=== PATIENT | female | born 1990 | race Caucasian/White ===

== ENCOUNTER 2018-03-07 16:04 | Emergency (ER) | payer SELFPAY ==
--- NOTE | 2018-03-07 16:27 | ED.PDOC ---
History of Present Illness - General Chief Complaint: GI Problem Stated Complaint: INDIGESTION Time Seen by Provider: 03/07/18 16:19 Source: patient Exam Limitations: no limitations - History of Present Illness Initial Comments: Oswald Noonan 27 y/o female stated that she had intermittent N/V the last 2 weeks and 2 days ago started having loose stools ,no dysuria or hematuria.No abdominal pains but with loss of her appetite and also stated exposed to several niece that had been sick.Denies chronic medical problem. Severity: moderate Improving Factors: nothing Worsening Factors: nothing Associated Symptoms: loss of appetite Allergies/Adverse Reactions: Allergies NO KNOWN ALLERGY Allergy (Verified 09/13/13 10:20) Home Medications: Ambulatory Orders Promethazine Tab [Phenergan Tablet] 25 mg PO .Q4H PRN #20 tab 03/07/18 Sertraline HCl 50 mg PO BEDTIME 03/07/18 Review of Systems - Review of Systems Constitutional: States: no symptoms reported EENTM: States: no symptoms reported Respiratory: States: no symptoms reported Cardiology: States: no symptoms reported Gastrointestinal/Abdominal: States: see HPI, vomiting Genitourinary: States: no symptoms reported Musculoskeletal: States: no symptoms reported Skin: States: no symptoms reported Past Medical History (General) - Patient Medical History Hx Stroke: No Hx Congestive Heart Failure: No Hx Thyroid Disease: No Hx Diabetes: No Hx Other PMH: Yes - endometriosis Surgical History: cholecystectomy - Vaccination History Hx Influenza Vaccination: No Family Medical History - Family History Mother Family History: No Known Hx Family Hypertension: Yes - parents Physical Exam - Physical Exam General Appearance: Alert, Comfortable, No apparent distress Eye Exam: bilateral normal Ears, Nose, Throat: hearing grossly normal, normal ENT inspection Neck: non-tender, full range of motion, supple, normal inspection Respiratory: lungs clear, normal breath sounds, no respiratory distress Cardiovascular/Chest: normal peripheral pulses, regular rate, rhythm, no murmur Peripheral Pulses: radial,right: 2+, radial,left: 2+ Gastrointestinal/Abdominal: normal bowel sounds, non tender, soft, no organomegaly Back Exam: normal inspection, no CVA tenderness, no vertebral tenderness Extremity: no pedal edema, no calf tenderness Neurologic: alert, oriented x 3 Skin Exam: normal color, warm/dry Lymphatic: no adenopathy Progress - Progress Progress: 03/07/18 16:43 Vital Signs - 8 hr 03/07/18 16:14 Temperature 99.3 F Pulse Rate [ 98 H left brachial] Respiratory 18 Rate Blood Pressure 131/88 [right brachial ] O2 Sat by Pulse 97 Oximetry - Results/Orders Results/Orders: Laboratory Results - last 24 hr 03/07/18 03/07/18 03/07/18 16:28 17:16 17:16 WBC 8.6 RBC 4.36 Hgb 13.8 Hct 41.0 MCV 93.9 MCH 31.7 H MCHC 33.8 RDW 12.0 Plt Count 201 MPV 7.2 L Absolute Neuts (auto) 7.40 H Absolute Lymphs (auto) 0.70 L Absolute Monos (auto) 0.50 Absolute Eos (auto) 0.00 Absolute Basos (auto) 0.00 Neutrophils % 85.5 H Lymphocytes % 7.8 L Monocytes % 6.1 Eosinophils % 0.4 L Basophils % 0.2 Sodium 136 Potassium 3.3 L Chloride 102 Carbon Dioxide 26 Anion Gap 11.3 L BUN 12 Creatinine 0.64 BUN/Creatinine Ratio 18.8 Random Glucose 84 Serum Osmolality 270.9 L Calcium 9.6 Total Bilirubin 1.4 H AST 14 ALT 17 Alkaline Phosphatase 33 L Serum Total Protein 7.3 Albumin 4.4 Globulin 2.9 Albumin/Globulin Ratio 1.5 Lipase 16 L Serum HCG, Qual Urine Color Urine Appearance Urine pH Ur Specific [place] Urine Protein Urine Glucose (UA) Urine Ketones Urine Blood Urine Nitrite Urine Bilirubin Urine Urobilinogen Ur Leukocyte Esterase Urine RBC Urine WBC Ur Epithelial Cells Urine Bacteria Urine Opiates Screen Negative Urine Barbiturates Negative Ur Phencyclidine Scrn Negative U Amphetamin/Meth Scrn Negative U Benzodiazepines Scrn Negative U Cocaine Metab Screen Negative U Cannabinoids Screen Positive H Monoscreen 03/07/18 03/07/18 17:16 17:45 WBC RBC Hgb Hct MCV MCH MCHC RDW Plt Count MPV Absolute Neuts (auto) Absolute Lymphs (auto) Absolute Monos (auto) Absolute Eos (auto) Absolute Basos (auto) Neutrophils % Lymphocytes % Monocytes % Eosinophils % Basophils % Sodium Potassium Chloride Carbon Dioxide Anion Gap BUN Creatinine BUN/Creatinine Ratio Random Glucose Serum Osmolality Calcium Total Bilirubin AST ALT Alkaline Phosphatase Serum Total Protein Albumin Globulin Albumin/Globulin Ratio Lipase Serum HCG, Qual Negative Urine Color Yellow Urine Appearance Clear Urine pH 5.5 Ur Specific [place] 1.025 Urine Protein Negative Urine Glucose (UA) Negative Urine Ketones >=160 Urine Blood Negative Urine Nitrite Negative Urine Bilirubin Moderate Urine Urobilinogen 1.0 Ur Leukocyte Esterase Negative Urine RBC 0 Urine WBC 0 Ur Epithelial Cells 10-20 Urine Bacteria Rare Urine Opiates Screen Urine Barbiturates Ur Phencyclidine Scrn U Amphetamin/Meth Scrn U Benzodiazepines Scrn U Cocaine Metab Screen U Cannabinoids Screen Monoscreen Negative - EKG/XRAY/CT XRAY: chest - and abdomen no acute findings/radiologist Departure - Departure Clinical Impression: Nausea & vomiting Qualifiers: Vomiting type: unspecified Vomiting Intractability: non-intractable Qualified Code(s): R11.2 - Nausea with vomiting, unspecified Time of Disposition: 19:41 Disposition: Discharge to Home or Self Care Condition: Fair Departure Forms: ED Discharge - Pt. Copy, Patient Portal Self Enrollment Diet: bland diet - until better, other - Avoid greasy,spicy foods Prescriptions: Promethazine Tab [Phenergan Tablet] 25 mg PO .Q4H PRN #20 tab PRN Reason: Nausea Home Medications: Ambulatory Orders Promethazine Tab [Phenergan Tablet] 25 mg PO .Q4H PRN #20 tab 03/07/18 Sertraline HCl 50 mg PO BEDTIME 03/07/18 Additional Instructions: Need to get signed up with primary Md [phone];Take Pepcid-10 one capsule am/pm(over the counter)
[2018-03-07] MEDS ORDERED: LACTATED RINGERS 1,000 ML IVS ONE (16:28)
[2018-03-07] MEDS ORDERED: PROMETHAZINE HCL INJ 25 MG/ML VIAL IM ONE (16:28)
--- NOTE | 2018-03-07 19:24 | RAD ---
EXAM: Abdomen 1 View (accession [id number]), Chest,1 View (accession [id number]) CLINICAL INDICATION: 27-year-old female with nausea and vomiting. TECHNIQUE: Single view, PA chest was obtained. Single view of the abdomen was obtained in supine positioning. COMPARISON: None. FINDINGS: Chest: Unremarkable cardiac and mediastinal silhouette. Heart size is normal. Lungs are clear without focal opacity, pneumothorax or pleural effusions. The visualized bones are within normal limits. Abdomen: Gas is seen within normal caliber large bowel. Diffuse paucity of small bowel gas. No free air is identified. There are no abnormal calcifications. The osseous structures are within normal limits. IMPRESSION: 1. No acute cardiopulmonary abnormalities. 2. Normal bowel gas pattern. Electronically signed by: America Kaur MD 03/07/2018 7:22 PM [facility]
--- NOTE | 2018-03-07 19:24 | RAD ---
EXAM: Abdomen 1 View (accession [id number]), Chest,1 View (accession [id number]) CLINICAL INDICATION: 27-year-old female with nausea and vomiting. TECHNIQUE: Single view, PA chest was obtained. Single view of the abdomen was obtained in supine positioning. COMPARISON: None. FINDINGS: Chest: Unremarkable cardiac and mediastinal silhouette. Heart size is normal. Lungs are clear without focal opacity, pneumothorax or pleural effusions. The visualized bones are within normal limits. Abdomen: Gas is seen within normal caliber large bowel. Diffuse paucity of small bowel gas. No free air is identified. There are no abnormal calcifications. The osseous structures are within normal limits. IMPRESSION: 1. No acute cardiopulmonary abnormalities. 2. Normal bowel gas pattern. Electronically signed by: America Kaur MD 03/07/2018 7:22 PM [facility]
[2018-03-07] MEDS ORDERED: PANTOPRAZOLE SODIUM TAB 40 MG PO ONE (19:33)
[2018-03-07] MEDS ORDERED: ONDANSETRON ODT (ER DISP) 8 MG TAB PO ONE (19:44)
[2018-03-07 19:59] VITALS: BP 121/71; TEMP 98.9; O2SAT 97
== END 2018-03-07 20:15 | disposition home or self-care (01) ==
LOC: ER 16:04
DX: R11.2 Nausea with vomiting, unspecified (principal); Z90.49 Acquired absence of other specified parts of digestive tract
CPT/HCPCS: 36415; 71045; 74018; 80053; 80307; 81001; 83690; 84703; 85025; 86403; J2060; J2550; J7120